=== PATIENT | female | born 1985 | race Caucasian/White ===

== ENCOUNTER 2020-06-04 13:01 | Emergency (ER) | payer SELFPAY ==
[~2020-06-04] VITALS: Ht 167.6 cm; Wt 77.1 kg
== END 2020-06-05 09:56 | disposition home or self-care (01) ==
LOC: ED 13:01
DX: F69 Unspecified disorder of adult personality and behavior (principal); F17.200 Nicotine dependence, unspecified, uncomplicated
CPT/HCPCS: 80053; 80176; 81001; 84443; 84703; 85025; 99283; G0480